=== PATIENT | female | born 1955 | race Caucasian/White ===

== ENCOUNTER 2018-05-04 17:24 | Outpatient (REF) | payer BC, SELFPAY ==
--- NOTE | 2018-05-04 17:00 | ENDOMET_PTH ---
PATIENT: Adela Marte LOC: [facility] U#:[id number] AGE/SX: 63/F ROOM: RE05/04/[address]: Jasmin Theodore MD : 1955 BED: DIS: 05/04/2018 SPEC #: [id number] RECD: 05/04/18 17:56 STATUS: NCIHELLE REGomez #: [id number] TRAVON: 05/04/18 17:[address]: Jasmin Theodore DEPT: Surgical Specimen RECD BY: Alta Rolle ENTERED: 05/04/18 17:57 SP TYPE: Endomet OT DR: KIMI Arauz Tissues: 1 - ENDOMETRIUM BX/CURRETTE Procedures: GROSS AND MICRO LEVEL 4 Comments: [id number]
== END 2018-05-04 17:44 ==
LOC: LBN 17:24
PROVIDERS: PCP Nurse Practitioner Family; Visit Provider Obstetrics & Gynecology
DX: N95.0 Postmenopausal bleeding (principal); N85.8 Other specified noninflammatory disorders of uterus
CPT/HCPCS: 88305

== ENCOUNTER 2019-08-20 01:36 | Outpatient (CLI) | payer BC, SELFPAY ==
--- NOTE | 2019-08-20 06:45 | DI.DEXA_ITS ---
EXAM: XR DEXA BONE DENSITY W/WO CHRISTIAN CLINICAL HISTORY: SCREENING FOR OSTEOPOROSIS IN POSTMENOPAUSAL WOMAN,Z78.0 TECHNIQUE: COMPARISON: No exams were available for comparison FINDINGS: Lateral Spine Image: Unremarkable. No compression deformities identified. Left hip: Total T-Score: -1.0 Total Z-Score: 0.2 T- and Z-scores: Within normal limits. Lumbar Spine: Total T-Score: -1.1 Total Z-Score: 0.7 T- and Z-scores: Consistent with osteopenia and an increased fracture risk. IMPRESSION: No evidence of osteoporosis.
--- NOTE | 2019-08-20 09:45 | DI.MAMMO_ITS ---
EXAM: MG MAMMO SCREENING CLINICAL HISTORY: screening,Z12.39 TECHNIQUE: Bilateral full field digital CC and MLO mammographic images were obtained with 3D tomosyn thesis and utilizing computer aided detection (CAD). COMPARISON: Available for comparison. FINDINGS: Masses/Architectural Distortion: None seen. Microcalcifications: No suspicious pleomorphic-type are seen. Skin Thickening/Nipple Retraction: None. IMPRESSION: 1. No significant interval change with no specific features of malignancy noted. 2. Unless there is more urgent need, screening mammography is recommended, as per [employer] guidelines. BI-RADS Category 1 - Negative Breast Density - Category C - Heterogeneously dense The mammogram demonstrates the patient's breast tissue is dense. Dense breast tissue is very common a nd is not abnormal but dense breast tissue can make it harder to find cancer on a mammogram. Also, de nse breast tissue may increase their breast cancer risk. This information about the result of the [facility] mogram report was provided to the patient to raise their awareness. Use this report when you speak wi th the patient about their risks for breast cancer, which includes their family history. At that time , you may recommend for more screening tests (Ultrasound or MRI) as they might be useful based on the ir risk. A negative radiographic report should not delay biopsy if a dominant or clinically suspicious mass is present. Up to ten percent of cancers are not identified on mammography. A negative report may reinforce clinical impression. Adenosis and dense breasts may obscure an underlying neoplasm. False positive reports average 6 to 10%. Patient will receive a letter notifying them of these results.
== END 2019-08-20 01:56 ==
PROVIDERS: PCP Nurse Practitioner Family; Visit Provider Nurse Practitioner Family
DX: Z12.31 Encounter for screening mammogram for malignant neoplasm of breast (principal); M85.88 Other specified disorders of bone density and structure, other site; Z78.0 Asymptomatic menopausal state
CPT/HCPCS: 77063; 77067; 77080

== ENCOUNTER 2020-04-30 01:17 | Outpatient (CLI) | payer OTHER, BC, SELFPAY ==
--- NOTE | 2020-04-30 13:08 | DI.RAD_ITS ---
EXAM: XR LUMBAR SPINE COMPLETE CLINICAL HISTORY: H/O BACK INJURY,BACK PAIN, RADICULOPATHY,M54.16. TECHNIQUE: 2D digital imaging was performed. COMPARISON: CR XR DEXA BONE DENSITY W/WO CHRISTIAN from 08/20/2019 FINDINGS: There is no evidence of fracture, listhesis, or pars interarticularis defects. There is disc space n arrowing at both L4-5 and L5-S1 levels. Other disc spaces exhibit normal height in the lumbar spine. No scoliosis. Degenerative changes seen in the facet joints at L5-S1 level. Sacroiliac joints stas ear unremarkable. No osseous lesions. IMPRESSION: Degenerative disc disease. Sign rib DATA REPOSITORY: RADIATION DOSE DELIVERED:
== END 2020-04-30 01:37 ==
PROVIDERS: PCP Nurse Practitioner Family; Visit Provider Nurse Practitioner Family
DX: M47.27 Other spondylosis with radiculopathy, lumbosacral region (principal)
CPT/HCPCS: 72110

== ENCOUNTER 2020-05-22 00:47 | Outpatient (CLI) | payer OTHER, BC, SELFPAY ==
--- NOTE | 2020-05-22 07:15 | DI.MRI_ITS ---
EXAM: MR LUMBAR SPINE WO CLINICAL HISTORY: Assess for herniated disc,RADICULOPATHY,BACK PAIN, M54.16. TECHNIQUE: Multiplanar multisequence MRI was performed. COMPARISON: CR XR LUMBAR SPINE COMPLETE from 04/30/2020 FINDINGS: Vertebral bodies are well maintained in height. The conus medullaris appears normal. The aorta is normal in diameter. The visualized portions of the kidneys are unremarkable. The L1-2 disc has a normal appearance. There is mild disc bulging at L2-3. Mild disc bulging is also seen at L3-4. There are mild facet degenerative changes and mild ligamento us hypertrophy but no significant central canal stenosis or neural foraminal narrowing. There is mild loss of disc height at L4-5 and moderate concentric disc bulging. There is a small pos terior annular tear. There is ligamentous hypertrophy and mild facet degenerative changes combining with the disc bulging to produce slight central canal stenosis. There is no significant neural angela inal narrowing. At L5-S1, there is a disc protrusion which is slightly eccentric toward the right in appears a imping e on nerve roots. There are facet degenerative changes and ligamentous hypertrophy causing mild cent ral canal stenosis. There is no significant neural foraminal narrowing. IMPRESSION: Small central annular tear at L4-5 superimposed on mild degenerative disc changes. Right paracentral disc protrusion at L5-S1 with nerve root impingement. DATA REPOSITORY:
== END 2020-05-22 00:48 ==
LOC: DI 00:47
PROVIDERS: PCP Nurse Practitioner Family; Visit Provider Nurse Practitioner Family
DX: M54.16 Radiculopathy, lumbar region (principal); M51.16 Intervertebral disc disorders with radiculopathy, lumbar region; M51.17 Intervertebral disc disorders with radiculopathy, lumbosacral region
CPT/HCPCS: 72148

== ENCOUNTER 2020-12-17 16:19 | Outpatient (REF) | payer BC, SELFPAY ==
[2020-12-17 17:46] LABS: ALT 30 U/L (14-59); AST 18 U/L (15-37); Albumin 3.8 g/dL (3.4-5.0); Alkaline Phosphatase 77 U/L (46-116); Anion Gap 7.6 mmol/L (3-11); BUN 13 mg/dL (7-18); Bilirubin, Total 0.3 mg/dL (0.2-1.0); CO2 27.4 mmol/L (21.0-32.0); CREATININE 0.9 mg/dL (0.55-1.02); Chloride 106 mmol/L (98-107); Glucose 84 mg/dL (74-106); Potassium 4.5 mmol/L (3.5-5.1); Sodium 141 mmol/L (136-145); TSH (W/Ref FT4) 2.11 uIU/mL (0.36-3.74); Total Protein 7.3 g/dL (6.4-8.2)
[2020-12-17 19:07] LABS: HGB 13.2 g/dL (11.2-15.7); MCH 30.8 pg (27.0-33.0); MCV 93.2 fL (80-95); MPV 10.9 fL (8.0-11.0); Platelet Count 197 10^3/uL (130-400); RBC 4.29 10^6/uL (3.93-5.22); RDW 12.5 % (11.7-14.6); RDW-SD 42.9 fL; WBC 5.01 10^3/uL (4.4-10.8)
== END 2020-12-17 16:20 | disposition home or self-care (01) ==
LOC: LBN 16:19
PROVIDERS: PCP Nurse Practitioner Family; Visit Provider Nurse Practitioner Family
DX: R41.89 Other symptoms and signs involving cognitive functions and awareness (principal)
CPT/HCPCS: 80053; 85027; 84443

== ENCOUNTER 2020-12-29 14:09 | Outpatient (CLI) | payer OTHER, BC, SELFPAY ==
--- NOTE | 2020-12-29 06:00 | DI.RAD_ITS ---
Exam(s) XR PAIN CLINIC LUMBAR SP 2V EXAM: XR PAIN CLINIC LUMBAR SP 2V CLINICAL HISTORY: Dx: Lumbar Spondylosis TECHNIQUE: 2D and realtime digital imaging was performed. CONTRAST MATERIAL: Refer to procedure report. COMPARISON: No exams were available for comparison FINDINGS: Fluoroscopy was provided for Dr. Choudhury during the performance of a lumbar epidural steroid injection. Please refer to the procedure report for complete details. Ka,r=5.79 mGy IMPRESSION:
[2020-12-29 14:43] VITALS: BP 121/82; PULSE 70; RESP 18; TEMP 36.9; O2SAT 96
--- NOTE | 2020-12-29 15:26 | PDOC.PAIN_ITS ---
Pain Clinic Procedure Note Procedure Note Procedure Note: Lumbar Epidural Steroid Injection Procedure Note Pre-operative diagnosis: lumbar radiculopathy Post-operative diagnosis: same as above Pre-procedure VAS score: 4/10 Post-procedure VAS score: 0/10 COMMENTS: patient sustained a work related injury while working at the [employer] service on 11/11/2019 and since then she has been experiencing right sided low back with radiation down right posterior buttock and right lateral thigh. She initially underwent CT guided right SI joint injection which provided 4-6 weeks of pain relief of lower back pain but she continues to have radiating tingling/numbness down right lower extremity. MRI L spine was done which showed L5-S1 paracentral disc herniation causing L5/S1 radiculopathy. Adela Marte has been referred to the [facility] for lumbar epidural steroid injection. The patient was greeted by the nurse who verified patients name and . Patient was then taken to the fluoroscopy suite. The patient was interviewed and the medial record reviewed. There were no medical, pharmacologic, radiographic, or other structural contraindications to attempting fluoroscopically guided lumbar epidural steroid injection. Risks and expected side effects as well as potential benefits of the procedure were reviewed and voiced concerns expressed. The patient consent form was signed and witnessed. Standard patient time-out procedure was performed. The patient was placed in the prone position on the fluoroscopy table and automated blood pressure cuff and pulse oximeter applied. The skin entry point for entering/approaching the epidural space by a L5-S1 and marked. Following thorough chlorhexadine preparation of the skin and draping and 1% lidocaine infiltration of the skin entry point and subcutaneous tissues, a 18 gauge Touhy needle was placed under fluoroscopic guidance and with loss of resistance technique into the epidural space. Needle tip placement and depth were aided and confirmed by fluoroscopy. There was no paresthesia or return of blood or CSF through the needle. 1 cc's of Omnipaque 240 was injected with clear epidural spread confirmed with fluoroscopy. 80mg depomedrol was injected, this was followed by 1cc of preservative free 1% lidocaine. There was not any unusual discomfort expressed by Adela Marte. Patient's vital signs were stable throughout the procedure and were as recorded in nursing records. Follow up plans and appointments were discussed with patient. Post procedure instruction was given as documented in nursing records and having met discharge criteria and was discharged from the [facility]. COMMENTS: If this procedure is helpful, it can be completed up to 3 times per 12 months. Davis Choudhury MD Pain Management
[2020-12-29 15:29] VITALS: BP 131/79; PULSE 61; RESP 18; O2SAT 99
[2020-12-29] MEDS: methylPREDNISolone ACETATE 80 MG/ML VIAL IJ (15:29)
[2020-12-29] MEDS: Omnipaque 240 MG/ML 50 ML BTL IJ (15:29)
== END 2020-12-29 14:10 | disposition home or self-care (01) ==
LOC: PC 14:10
PROVIDERS: PCP Nurse Practitioner Family; Visit Provider Internal Medicine
DX: M54.16 Radiculopathy, lumbar region (principal)
CPT/HCPCS: 62323; 72100; J1040; Q9967

== ENCOUNTER → 2021-01-14 01:35 | Outpatient (CLI) | payer OTHER, BC, SELFPAY ==
--- NOTE | 2021-01-14 08:35 | DI.MRI_ITS ---
Exam(s) MR LUMBAR SPINE WO EXAM: MR LUMBAR SPINE WO INDICATION: RECURRENT RADICULAR LEG PAIN,SCIATICA,M54.30. COMPARISON: MR MR LUMBAR SPINE WO from 05/22/2020 TECHNIQUE: MR examination of the lumbosacral spine was performed according to the usual protocol. FINDINGS: No significant bony signal abnormality is seen. Intervertebral discs show normal signal. There is m ild degenerative facet arthropathy evident throughout the lumbar region, most marked at L4-5 and L5-S 1. There is probable tiny right-sided facet synovial cyst noted at T12-L1. No significant findings from T12-L1 through L 3 4 levels. No evidence of central canal spinal stenos is, neural foraminal stenosis, or disc herniation at these levels.. The conus medullaris appears intact. At L4-5, there is a mild broad-based disc herniation, grossly unchanged from prior examination of May. Previously described annular tear at this level is slightly less visible on today's exam ination. There is no significant neural foraminal stenosis or central canal spinal stenosis at this level. At L5-S1, there is a central and right-sided disc herniation which impinges right S1 nerve root. Thi s disc herniation appears subtly more prominent than on prior examination of May 22. IMPRESSION: Mild increase in prominence of central/right paracentral disc herniation at L5-S1 since prior examina tion of May 22. Presumed impingement on right S1 nerve root.
== END ==
PROVIDERS: PCP Nurse Practitioner Family; Visit Provider Physician Assistant Medical
DX: M54.31 Sciatica, right side (principal); M54.16 Radiculopathy, lumbar region; M51.17 Intervertebral disc disorders with radiculopathy, lumbosacral region; M47.27 Other spondylosis with radiculopathy, lumbosacral region
CPT/HCPCS: 72148

== ENCOUNTER 2021-03-29 15:33 | Outpatient (CLI) | payer BC, SELFPAY ==
--- NOTE | 2021-03-29 15:30 | RT.EKG_ITS ---
APPROVED REPORT Exam: Resting ECG Reason for Exam: Pre-Op Patient Location: O HR:69 bpm ECG Measurements Heart Rate 69 AXIS AK 128 P 55 QRSd 77 QRS 13 QT 373 T 36 QTc 399 Conclusion Sinus rhythm...normal P axis, V-rate 60- 99 Normal Electrocardiogram
== END 2021-03-29 15:34 | disposition home or self-care (01) ==
LOC: DI.CM 15:34
PROVIDERS: PCP Nurse Practitioner Family; Visit Provider Nurse Practitioner Family
DX: Z01.818 Encounter for other preprocedural examination (principal); M54.16 Radiculopathy, lumbar region
CPT/HCPCS: 93010

== ENCOUNTER 2021-03-29 18:53 | Outpatient (REF) | payer BC, SELFPAY ==
[2021-03-29 20:03] LABS: ALT 23 U/L (14-59); AST 17 U/L (15-37); Alkaline Phosphatase 77 U/L (46-116); Anion Gap 6.5 mmol/L (3-11); BUN 16 mg/dL (7-18); Bilirubin, Total 0.3 mg/dL (0.2-1.0); CO2 29.5 mmol/L (21.0-32.0); CREATININE 0.9 mg/dL (0.55-1.02); Chloride 102 mmol/L (98-107); Glucose 94 mg/dL (74-106); Sodium 138 mmol/L (136-145); Total Protein 7.9 g/dL (6.4-8.2)
== END 2021-03-29 18:54 | disposition home or self-care (01) ==
LOC: LBN 18:53
PROVIDERS: PCP Nurse Practitioner Family; Visit Provider Nurse Practitioner Family
DX: Z01.818 Encounter for other preprocedural examination (principal)
CPT/HCPCS: 80053

== ENCOUNTER → 2021-07-14 01:30 | Outpatient (CLI) | payer MEDICARE, BC, SELFPAY ==
--- NOTE | 2021-07-14 15:45 | DI.MAMMO_ITS ---
Exam(s) MAMMO SCREENING EXAM: MAMMO SCREENING CLINICAL HISTORY: screening,z12.39 TECHNIQUE: Mammograms were interpreted according to the usual protocol including computer analysis w [employer] CAD system, tomosynthesis and C-view imaging. COMPARISON: 2013 through 2019 FINDINGS: The breasts are composed of heterogeneously dense fibroglandular densities, Breast Density category C . No suspicious masses or suspicious microcalcifications are seen. No skin thickening or abnormal axillary lymph nodes are seen. There has been no significant change from prior exams. IMPRESSION: BI-RADS Category 1, Negative mammogram. Yearly screening mammography is recommended. Breast Density Category C, heterogeneously Dense. The mammogram demonstrates the patient's breast tissue is dense. Dense breast tissue is very common a nd is not abnormal but dense breast tissue can make it harder to find cancer on a mammogram. Also, de nse breast tissue may increase breast cancer risk. This information about the result of the mammogram report was provided to the patient to raise their awareness. Use this report when you speak with the patient about their risks for breast cancer, which includes their family history. At that time, you may recommend additional screening tests (Ultrasound or MRI) as they might be useful based on their r isk. A negative radiographic report should not delay biopsy if a dominant or clinically suspicious mass is present. Up to ten percent of cancers are not identified on mammography. A negative report may reinforce clinical impression. Adenosis and dense breasts may obscure an underlying neoplasm. False positive reports average 6 to 10%.
== END ==
PROVIDERS: PCP Nurse Practitioner Family; Visit Provider Nurse Practitioner Family
DX: Z12.31 Encounter for screening mammogram for malignant neoplasm of breast (principal)
CPT/HCPCS: 77063; 77067

== ENCOUNTER → 2023-07-14 00:12 | Outpatient (CLI) | payer MEDICARE, BC, SELFPAY ==
--- NOTE | 2023-07-14 08:15 | DI.DEXA_ITS ---
Exam(s) XR DEXA BONE DENSITY W/WO CHRISTIAN EXAM: XR DEXA BONE DENSITY W/WO CHRISTIAN CLINICAL HISTORY: osteopenia,SCREENING FOR OSTEOPOROSIS IN POSTMENOPAUSAL WOMAN,Z78.0 TECHNIQUE: COMPARISON: CR XR DEXA BONE DENSITY W/WO CHRISTIAN from 08/20/2019 FINDINGS: Lateral Spine Image: Unremarkable. No compression deformities identified. Left hip: Total T-Score: -1.0. This compares to -1.0 on the prior examination. Total Z-Score: 0.4 T- and Z-scores: No evidence of osteoporosis. Lumbar Spine: Total T-Score: -1.1. This compares to -1.1 on the prior examination. Total Z-Score: 0.9 T- and Z-scores: Findings are consistent with osteopenia. IMPRESSION: No evidence of osteoporosis.
--- NOTE | 2023-07-14 15:17 | DI.MAMMO_ITS ---
Exam(s) MAMMO SCREENING EXAM: MAMMO SCREENING CLINICAL HISTORY: screening,Z12.39. TECHNIQUE: Bilateral full field digital CC and MLO mammographic images were obtained with 3D tomosyn thesis and utilizing computer aided detection (CAD). COMPARISON: Prior mammograms were reviewed. FINDINGS: There has been no significant change in the appearance and distribution of the fibroglandular tissue. There are no new spiculated masses nor malignant appearing microcalcification groups. Asymmetric density in the right breast on the MLO view is unchanged from mammograms. There is no significant architectural distortion nor skin thickening-retraction. IMPRESSION: No radiographic evidence of malignancy. BI-RADS Category 1 - Negative Breast Density - Category C - Heterogeneously dense Breast density Category C or D implies that the patient has dense breast tissue. Dense breast tissue can make it harder to find cancer on a mammogram. Dense breast tissue is also associated with an incr eased risk of breast cancer. This information about the result of the mammogram report was provided to the patient to raise their awareness. Use this report when you speak with the patient about their risks for breast cancer, which includes their family history. At that time, you may recommend additional screening tests (Ultrasoun d or MRI) as these tests may add significant information. A negative radiographic report should not delay biopsy if a dominant or clinically suspicious mass is present. Up to ten percent of cancers are not identified on mammography. A negative report may reinforce clinical impression. Adenosis and dense breasts may obscure an underlying neoplasm. False positive reports average 6 to 10%. Patient will receive a letter notifying them of these results.
== END ==
PROVIDERS: PCP Nurse Practitioner Family; Visit Provider Nurse Practitioner Family
DX: Z12.31 Encounter for screening mammogram for malignant neoplasm of breast (principal); Z78.0 Asymptomatic menopausal state; Z13.820 Encounter for screening for osteoporosis
CPT/HCPCS: 77063; 77067; 77080

== ENCOUNTER 2024-07-08 03:38 | Outpatient (CLI) | payer MEDICARE, BC, SELFPAY ==
[2024-07-08 10:04] LABS: Abs Immature Grans 0.02 10^3/uL (0.0-0.06); Absolute Basophil Count 0.06 10^3/uL (0.0-0.2); Absolute Lymphocyte Count 1.87 10^3/uL (1.2-3.4); Absolute Monocyte Count 0.42 10^3/uL (0.1-0.8); Basophils % 1.1 %; Eosinophils % 1.8 %; HCT 40.7 % (36.0-46.0); HGB 13.9 g/dL (11.2-15.7); Immature Grans % 0.4 %; Lymphocytes % 34.2 %; MCH 30.6 pg (27.0-33.0); MCHC 34.2 % (32.0-36.0); MCV 90 fL (80-95); MPV 9.8 fL (8.0-11.0); Monocytes % 7.7 %; Neutrophils % 54.8 %; Platelet Count 183 10^3/uL (130-400); RBC 4.54 10^6/uL (3.93-5.22); RDW 12.4 % (11.7-14.6); RDW-SD 40.7 fL; WBC 5.47 10^3/uL (4.4-10.8)
[2024-07-08 11:09] LABS: Anion Gap 6.9 mmol/L (3-11); BUN 15 mg/dL (7-18); CO2 29.1 mmol/L (21.0-32.0); CREATININE 1.1 mg/dL (0.55-1.02); Calcium 9.6 mg/dL (8.5-10.1); Calculated LDL 166 mg/dL (<100); Chloride 105 mmol/L (98-107); Cholesterol 238 mg/dL (<200); Estimated GFR 54.06 (mL/min/1.73m2); Glucose 100 mg/dL (74-106); HDL Cholesterol 53 mg/dL (>or=50); Potassium 4.6 mmol/L (3.5-5.1); Sodium 141 mmol/L (136-145); TSH (W/Ref FT4) 2.97 uIU/mL (0.36-3.74); Triglyceride 97 mg/dL (<150); Vitamin D 25 Total 31 ng/mL (30-100)
== END 2024-07-08 03:39 | disposition home or self-care (01) ==
LOC: LBO 03:38
PROVIDERS: PCP Nurse Practitioner Family; Visit Provider Nurse Practitioner Family
DX: E78.5 Hyperlipidemia, unspecified (principal); E55.9 Vitamin D deficiency, unspecified; R53.83 Other fatigue
CPT/HCPCS: 36415; 80048; 80061; 82306; 84443; 85025

== ENCOUNTER 2024-07-17 01:30 | Outpatient (CLI) | payer MEDICARE, BC, SELFPAY ==
--- NOTE | 2024-07-17 07:15 | DI.US_ITS ---
Exam(s) US PELVIS TRANSVAGINAL EXAM: US PELVIS TRANSVAGINAL CLINICAL HISTORY: spotting monthly x 6mo,POSTMENOPAUSAL BLEEDING,N95.0 TECHNIQUE: Transabdominal and transvaginal imaging was performed using standard protocol. COMPARISON: None FINDINGS: The bladder is well distended on the transabdominal images and unremarkable as visualized. UTERUS: Anteverted. 5.4 x 3.1 by 4.1 cm Endometrium: Mildly thickened at 5.3 Millimeters. Myometrium: Unremarkable. Cervix: Unremarkable. OVARIES: Right: Not well seen. Located posterior to the uterus. Cyst or mass: 9 millimeter cyst. Left: 2.1 x 1.5 x 2.1 cm. Cyst or mass: 19 millimeter cyst. CUL-DE-SAC: Free fluid: None. IMPRESSION: Mild endometrial thickening. 1.9 centimeter left ovarian cyst. DATA REPOSITORY:
--- NOTE | 2024-07-17 07:15 | DI.MAMMO_ITS ---
Exam(s) MAMMO SCREENING EXAM: MAMMO SCREENING CLINICAL HISTORY: screening,Z12.39. TECHNIQUE: Bilateral full field digital CC and MLO mammographic images were obtained with 3D tomosyn thesis and utilizing computer aided detection (CAD). COMPARISON: Prior mammograms were reviewed. FINDINGS: Fibroglandular tissue pattern is again noted be moderately dense, this somewhat decreasing the sensit ivity of the mammogram for finding hidden underlying lesions. There are no new left breast findings. In the right breast an asymmetric density on the MLO view is unchanged from prior mammograms. Howeve r, on the CC view there is a new asymmetric density-possible nodule located 6 cm in from the nipple, lateral of central and measuring approximately 5 x 5 mm. Further imaging recommended. This may or m ay not correspond to the finding on the MLO view described above. There are no malignant-appearing microcalcification groups is region or elsewhere in either breast. There is no significant architectural distortion nor skin thickening-retraction. IMPRESSION: 1. Dense bilateral fibroglandular tissue. No radiographic evidence of malignancy in left breast. 2. Asymmetric density-possible new nodule in the right breast as described above. Spot compression C C and MLO views of the right breast are recommended as is complete breast ultrasound. BI-RADS Category 0 - Incomplete: Need additional imaging evaluation Breast Density - Category C - Heterogeneously dense Breast density Category C or D implies that the patient has dense breast tissue. Dense breast tissue can make it harder to find cancer on a mammogram. Dense breast tissue is also associated with an incr eased risk of breast cancer. This information about the result of the mammogram report was provided to the patient to raise their awareness. Use this report when you speak with the patient about their risks for breast cancer, which includes their family history. At that time, you may recommend additional screening tests (Ultrasoun d or MRI) as these tests may add significant information. A negative radiographic report should not delay biopsy if a dominant or clinically suspicious mass is present. Up to ten percent of cancers are not identified on mammography. A negative report may reinforce clinical impression. Adenosis and dense breasts may obscure an underlying neoplasm. False positive reports average 6 to 10%. Patient will receive a letter notifying them of these results.
== END 2024-07-17 01:50 ==
LOC: DI 01:30
PROVIDERS: PCP Nurse Practitioner Family; Visit Provider Nurse Practitioner Family
DX: Z12.31 Encounter for screening mammogram for malignant neoplasm of breast (principal); N95.0 Postmenopausal bleeding
CPT/HCPCS: 77063; 77067; 76830; 76856

== ENCOUNTER 2024-07-23 01:22 | Outpatient (CLI) | payer MEDICARE, BC, SELFPAY ==
--- NOTE | 2024-07-23 | DI.US_ITS ---
Exam(s) MG MAMMO SCREEN CALL BACK UNI US BREAST RT LIMITED EXAM: MG MAMMO SCREEN CALL BACK UNI and U/S breast RT limited CLINICAL HISTORY: Asym Density ?new nodule rt breast follow up mammo R92.8. TECHNIQUE: Craniocaudal and mediolateral oblique Full Field Digital Mammography views of the right b reast with Computer Aided Diagnosis followed by Tomosynthesis and limited right breast ultrasound. COMPARISON: Comparison is made with prior examinations. FINDINGS: Mammography/Tomosynthesis: Masses/Architectural Distortion: The area of concern in the lower outer quadrant of the right breast does not persist on the additional views. Microcalcifictions: No suspicious pleomorphic-type are seen. Skin Thickening/Nipple Retraction: None. Limited right breast US: Echotexture: Normal appearance of the glandular tissue. Shadowing: No suspicious foci. Cyst: None. Solid lesions: None seen. Ductal dilation: None. IMPRESSION: 1. No evidence of malignancy is noted. 2. Unless there is more urgent need, follow-up screening mammography is recommended, as per [employer] guidelines. 3. The findings were discussed with the patient on the date of the examination. BI-RADS Category 1 - Negative Breast Density - Category C - Heterogeneously dense Breast density Category C or D implies that the patient has dense breast tissue. Dense breast tissue can make it harder to find cancer on a mammogram. Dense breast tissue is also associated with an incr eased risk of breast cancer. This information about the result of the mammogram report was provided to the patient to raise their awareness. Use this report when you speak with the patient about their risks for breast cancer, which includes their family history. At that time, you may recommend additional screening tests (Ultrasoun d or MRI) as these tests may add significant information. A negative radiographic report should not delay biopsy if a dominant or clinically suspicious mass is present. Up to ten percent of cancers are not identified on mammography. A negative report may reinforce clinical impression. Adenosis and dense breasts may obscure an underlying neoplasm. False positive reports average 6 to 10%. Patient will receive a letter notifying them of these results.
== END 2024-07-23 01:42 ==
LOC: DI 01:22
PROVIDERS: PCP Nurse Practitioner Family; Visit Provider Nurse Practitioner Family
DX: Z12.31 Encounter for screening mammogram for malignant neoplasm of breast (principal); R92.8 Other abnormal and inconclusive findings on diagnostic imaging of breast
CPT/HCPCS: 76642; 77063; 77067

== ENCOUNTER 2024-07-29 16:08 | Outpatient (REF) | payer MEDICARE, BC, SELFPAY ==
--- NOTE | 2024-07-29 15:00 | ENDOMET_PTH ---
PATIENT: Adela Marte LOC: [facility]#:[id number] AGE/SX: 69/F ROOM: RE07/29/[address]: Leanna Boucher MD : 1955 BED: DIS: 07/29/2024 SPEC #: [id number] RECD: 07/29/24 18:02 STATUS: NICHELLE REQ #: [id number] TRAVON: 07/29/24 15:[address]: Leanna Boucher DEPT: Surgical Specimen RECD BY: Alta Rolle ENTERED: 07/29/24 18:03 SP TYPE: Endomet OTHR DR: KIMI Arauz Tissues: 1 - ENDOMETRIUM BX/JEAN-PAULETTE Procedures: GROSS AND MICRO LEVEL 4 Comments: [id number]
== END 2024-07-29 16:09 | disposition home or self-care (01) ==
LOC: LBN 16:08
PROVIDERS: PCP Nurse Practitioner Family; Visit Provider Obstetrics & Gynecology
DX: N95.0 Postmenopausal bleeding (principal); N85.8 Other specified noninflammatory disorders of uterus
CPT/HCPCS: 88305

== ENCOUNTER → 2024-09-30 10:42 | Outpatient (BNVA) | payer MEDICARE, BC, SELFPAY | PROVIDERS: PCP Nurse Practitioner Family; Referring Provider Nurse Practitioner Family; Visit Provider Psychiatry & Neurology Neurology | DX: G25.0 Essential tremor (principal); G62.9 Polyneuropathy, unspecified | CPT/HCPCS: 99204 ==

== ENCOUNTER 2024-11-15 00:51 | Outpatient (CLI) | payer MEDICARE, BC, SELFPAY ==
[2024-11-15 12:55] LABS: Anion Gap 9.2 mmol/L (3-11); BUN 13 mg/dL (7-18); CO2 26.8 mmol/L (21.0-32.0); Calcium 9.2 mg/dL (8.5-10.1); Chloride 106 mmol/L (98-107); Estimated GFR 68.77 (mL/min/1.73m2); Glucose 103 mg/dL (74-106); Potassium 4.4 mmol/L (3.5-5.1); Sodium 142 mmol/L (136-145)
== END 2024-11-15 00:52 | disposition home or self-care (01) ==
LOC: LOS 00:51
PROVIDERS: PCP Nurse Practitioner Family; Visit Provider Nurse Practitioner Family
DX: R79.89 Other specified abnormal findings of blood chemistry (principal)
CPT/HCPCS: 36415; 80048

== ENCOUNTER → 2024-12-18 09:12 | Outpatient (BNVA) | payer MEDICARE, BC, SELFPAY | PROVIDERS: PCP Nurse Practitioner Family; Referring Provider Nurse Practitioner Family; Visit Provider Psychiatry & Neurology Neurology | DX: G25.0 Essential tremor (principal); G62.9 Polyneuropathy, unspecified | CPT/HCPCS: 99213 ==